=== PATIENT | male | born 1940 | race Two or more races ===

== ENCOUNTER 2023-07-10 08:30 | Emergency (ER) | payer OTHER ==
[~2023-07-10] VITALS: Ht 175.3 cm; Wt 81.6 kg
[2023-07-10] MEDS ORDERED: LISINOPRIL20 MG PO (08:49)
== END 2023-07-10 12:52 | disposition home or self-care (01) ==
LOC: ER 08:31
DX: S01.02XA Laceration with foreign body of scalp, initial encounter (principal); V48.0XXA Car driver injured in noncollision transport accident in nontraffic accident, initial encounter; Y93.89 Activity, other specified; Y92.89 Other specified places as the place of occurrence of the external cause; I10 Essential (primary) hypertension